=== PATIENT | male | born 1970 | race Two or more races ===

== ENCOUNTER 2018-01-19 12:35 | Day surgery (SDC) | payer BC | END 2018-01-19 17:02 | disposition home or self-care (01) | LOC: GIL 12:35 | DX: K29.30 Chronic superficial gastritis without bleeding (principal); K21.9 Gastro-esophageal reflux disease without esophagitis; I10 Essential (primary) hypertension; K76.0 Fatty (change of) liver, not elsewhere classified | CPT/HCPCS: 43239; 88305; 88312; 88313 ==